=== PATIENT | female | born 1990 | race Caucasian/White ===

== ENCOUNTER 2018-07-20 09:45 | Outpatient (CLI) | payer OTHER, SELFPAY ==
--- NOTE | 2018-07-20 13:55 | DI.RAD_ITS ---
SYMPTOMS/DIAGNOSIS: COUGH, R05 PA AND LATERAL CHEST: The heart is normal in size. The lungs are clear. The mediastinal structures and pleura appear intact. CONCLUSION: Normal chest.
== END 2018-07-20 10:05 ==
PROVIDERS: PCP Nurse Practitioner; Visit Provider Student in an Organized Health Care Education/Training Program
DX: R05 Cough (principal)
CPT/HCPCS: 71046

== ENCOUNTER 2019-04-27 09:57 | Outpatient (REF) | payer OTHER, SELFPAY ==
--- NOTE | 2019-04-27 09:00 | PAPFT_PTH ---
PATIENT: eJssica Mason LOC: EDD U#:[id number] AGE/SX: 29/F ROOM: RE04/27/[address]: Kayleen Spear APRN : 1990 BED: DIS: 04/27/2019 SPEC #: [id number] RECD: 04/27/19 12:49 STATUS: CANDIDA GONSALEZ #: [id number] NATHALIA: 04/27/19 09:[address]: Kayleen Spear DEPT: [facility] Cytology RECD BY: Belkis Remy Tissues: 1 - CX/ENDOCX FOR PAP SMEARS Procedures: PAP THIN PREP/UVM Screening HPV DNA PROBE Comments: [id number]
== END 2019-04-27 10:17 ==
LOC: LBN 09:57
PROVIDERS: PCP Nurse Practitioner; Visit Provider Nurse Practitioner
DX: Z12.4 Encounter for screening for malignant neoplasm of cervix (principal); Z11.51 Encounter for screening for human papillomavirus (HPV)
CPT/HCPCS: 88142; 87624

== ENCOUNTER 2019-11-17 01:50 | Emergency (ER) | payer BC, SELFPAY ==
[2019-11-17 01:53] VITALS: BP 143/91; PULSE 109; RESP 20; TEMP 36.5; O2SAT 100
--- NOTE | 2019-11-17 01:59 | ED.GENADUL_ITS ---
Discharge Plan Disposition Patient Disposition: HOME Condition: Stable Discharge Details Chief Complaint: Sorethroat Clinical Impression: Pharyngitis Primary Care Provider: Kayleen Spear ED Provider: Tereso Nieves Home Meds and New Rx's Prescriptions: New prednisone 20 mg tablet 60 mg PO DAILY 4 Days Qty: 12 RF: 0 amoxicillin 500 mg tablet 500 mg PO BID Qty: 20 RF: 0 Continued ketoconazole 2 % cream 1 applic TP BID PRN (Reason: rash LLE) Qty: 60 RF: 0 zolpidem [Ambien] 10 mg tablet 10 mg PO HS PRN (Reason: sleep) Qty: 30 RF: 3 dextroamphetamine-amphetamine [Adderall] 30 mg tablet 30 mg PO BID MDD 60 mg Qty: 56 RF: 0 Discharge Instructions Instructions: Pharyngitis (ED) Additional Instructions: if not better within a week see your primary care provider if you feel more pain, have more difficulty swallowing liquids or breathing return to the emergency department Medical Decision Making 29 yo female comes in with one day of sore throat. Denies fevers, dyspnea or difficulty swallowing liquids. Arrives hd stable speaking in full sentences with no stridor or drooling. She has erythema with exudates of posterior pharynx, midline uvula with some mild swelling, no restricted neck movements or pain over hyoid. Given appearance will treat presumptively with abx and given her swelling of the uvula that is mild will treat with steroids. Will observe here as well to see if there's any change in swelling pt remains stasble, no increase in swelling, will discharge and advised to f/u with pcp and return precautions given Differential Diagnosis Differential Diagnosis: pharyngitis, quinkes HPI General Mode of arrival: ambulatory . Date/Time Provider Initiated Documentation: 11/17/19 01:58 . Limitations to Documentation: no limitations . Information obtained by: patient . History of Present Illness 29 year old F presents to the emergency department with the chief complaint of sore throat, described as moderate, and is localized to the mouth. Patient reports no radiation. Patient started experiencing this day(s) and it has been constant. No relieving factors improve symptom(s), No exacerbating factors reported . Patient notes no other symptoms.. Related Data Home Medications Medication Instructions Recorded Confirmed ketoconazole 2 % topical cream 1 applic TP BID PRN #60 gm 01/17/19 09/05/19 zolpidem 10 mg tablet 10 mg PO HS PRN #30 tab 09/05/19 11/17/19 dextroamphetamine-amphetamine 30 30 mg PO BID #56 tab MDD 60 mg 10/31/19 11/17/19 mg tablet amoxicillin 500 mg PO BID #20 tab 11/17/19 prednisone 60 mg PO DAILY 4 Days #12 tab 11/17/19 Previous Rx's Medication Instructions Recorded ketoconazole 2 % topical cream 1 applic TP BID PRN #60 gm 01/17/19 zolpidem 10 mg tablet 10 mg PO HS PRN #30 tab 09/05/19 dextroamphetamine-amphetamine 30 30 mg PO BID #56 tab MDD 60 mg 10/31/19 mg tablet amoxicillin 500 mg PO BID #20 tab 11/17/19 prednisone 60 mg PO DAILY 4 Days #12 tab 11/17/19 Allergies Allergy/AdvReac Type Severity Reaction Status Date / Time erythromycin base Allergy Unknown rash, Verified 11/17/19 01:59 swollen face, ext. General Stated Complaint: Sorethroat ZECHARIAH: 4 Review of Systems All systems reviewed & are unremarkable except as noted in HPI and below Constitutional Constitutional: Denies chills, Denies fever(s) and Denies weakness ENT Ears, Nose, Mouth, and Throat: Denies change in voice Cardiovascular Cardiovascular: Denies chest pain and Denies dyspnea Respiratory Respiratory: Denies cough and Denies dyspnea Gastrointestinal Gastrointestinal: Denies abdominal pain, Denies nausea and Denies vomiting Musculoskeletal Musculoskeletal: Denies joint swelling Integumentary/Breasts Skin/Breast: Denies rash Neurologic Neurologic: Denies weakness Psychiatric Psychiatric: Denies depression [facility] Surgical History ACL Tear (R) Knee Corrective Eye Surgery labial revision (07/26/12) lasik (12/02/94) also 2004 Family History Mother Neoplasm (R) Breast:Lumpectomy, No Further Treatment Father , Heart Attack at age 52. No problems noted. 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, [email or web address] Other: same sex relationship currently What type of physical activity do you participate in: aerobic and resistance training Duration: 30-45 minutes/day Frequency: 5-6 times per week Seatbelt use: always Helmet use: Yes Drive 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 driver: No Working smoke detector in home: Yes Fire extinguisher in home: Yes Carbon monox detector in home: Yes Firearms in home: No Do you feel safe at home: Yes Do you feel safe in your relationship?: Yes Exam Const General: no acute distress Orientation: alert HENMT Head: normal to inspection Ears: external ears normal General nose exam: external nose normal Mouth: moist mucous membranes Eyes General: appearance normal, both eyes and all related structures Neck Neck: normal visual inspection Resp Effort & Inspection: normal respiratory effort and able to speak in complete sentences Cardio Rate: regular rate Skin General skin exam: no rashes or lesions noted Neuro General: alert and oriented x3 Extrem General: normal to inspection Psych Mental Status: mental status grossly normal Course Vital Signs Vital signs: Vital Signs Temperature 36.5 C 11/17/19 01:53 Pulse 109 H 11/17/19 01:53 Respiratory Rate 11/17/19 01:53 Blood Pressure 143/91 H 11/17/19 01:53 Pulse Oximetry 100 11/17/19 01:53 Temperature 36.5 C 11/17/19 01:53 Temperature Source Skin 11/17/19 01:53 Pulse 109 H 11/17/19 01:53 Respiratory Rate 11/17/19 01:53 Respiratory Effort 11/17/19 01:53 Blood Pressure 143/91 H 11/17/19 01:53 Pulse Oximetry 100 11/17/19 01:53 Oxygen Delivery Method Room Air 11/17/19 01:53 Oxygen Flow Rate 0 11/17/19 01:53 Pain Level 8 11/17/19 01:53
[2019-11-17] MEDS: predniSONE 20 MG TAB 60 MG PO (02:04)
[2019-11-17] MEDS: Amoxicillin 500 MG CAP PO (02:04)
[2019-11-17 02:45] VITALS: BP 116/71; PULSE 93; RESP 20; O2SAT 96
== END 2019-11-17 04:55 | disposition home or self-care (01) ==
LOC: ER 02:51
PROVIDERS: Emergency Provider Emergency Medicine; PCP Nurse Practitioner
DX: J02.9 Acute pharyngitis, unspecified (principal); J39.8 Other specified diseases of upper respiratory tract; F17.290 Nicotine dependence, other tobacco product, uncomplicated
CPT/HCPCS: 99283; J7512